=== PATIENT | female | born 1945 | race Asian ===

== ENCOUNTER 2019-07-20 14:49 | Inpatient (IN) | payer OTHER ==
[~2019-07-20] VITALS: Ht 149.9 cm; Wt 49.4 kg
[2019-07-20 14:55] VITALS: BP_SYST 134
[2019-07-20] MEDS ORDERED: INSULIN REGULAR, HUMAN 10 UNITS/0.1 ML INJ IVP ONE (15:15)
[2019-07-20] MEDS ORDERED: NACL 0.9% 1,000 ML IV ONE (15:15)
[2019-07-20 15:29] LABS: BILIRUBIN,URINE NEGATIVE (NEGATIVE); CLARITY/URINE CLEAR (CLEAR); COLOR,URINE YELLOW (YELLOW); GLUCOSE,URINE 3+ (NEGATIVE); KETONES,URINE NEGATIVE (NEGATIVE); LEUKOCYTE ESTERASE ,URINE NEGATIVE (NEGATIVE); NITRITE, URINE NEGATIVE (NEGATIVE); PROTEIN URINE TRACE (NEGATIVE); UROBILINOGEN,URINE 0.2 (0.2-1.0)
[2019-07-20 15:31] LABS: BLOOD, URINE TRACE (NEGATIVE)
[2019-07-20 15:49] LABS: BACTERIA,URINE MODERATE /HPF (None Seen); MUCUS,URINE None Seen /LPF (None Seen); WBC,URINE 0-3 /HPF (0-3)
[2019-07-20 15:52] LABS: BASOPHILS % (AUTO) 0.5 % (0.0-2.0); EOSINOPHILS # (AUTO) 0.2 K/uL (0.0-0.4); EOSINOPHILS % (AUTO) 3.4 % (0.0-4.0); HEMATOCRIT 34.8 % (36-48); HEMOGLOBIN 11.6 g/dL (12.0-16.0); LYMPHOCYTES # (AUTO) 1.3 K/uL (1.0-5.5); LYMPHOCYTES % (AUTO) 22.5 % (20.5-51.5); MEAN CORPUSCULAR HEMOGLOBIN 31 pg (27-31); MEAN CORPUSCULAR HGB CONC 33 % (32-36); MEAN CORPUSCULAR VOLUME 91 fL (79.0-98.0); MONOCYTES # (AUTO) 0.5 K/uL (0.0-1.0); MONOCYTES % (AUTO) 8.2 % (1.7-9.3); NEUTROPHILS # (AUTO) 3.8 K/uL (1.8-7.7); NEUTROPHILS % (AUTO) 65.4 % (40.0-70.0); PLATELET COUNT (AUTO) 211 K/uL (130-430); RED BLOOD CELL COUNT(AUTO) 3.81 MIL/uL (4.2-6.2); RED CELL DISTRIBUTION WIDTH 12.9 % (9.0-15.0); WHITE BLOOD COUNT (AUTO) 5.9 K/uL (4.8-10.8)
[2019-07-20 16:01] LABS: INR 0.9 (0.8-1.2); PROTHROMBIN TIME 9.3 SECS (9.5-12.5)
[2019-07-20 16:07] LABS: ANION GAP 5 (5-15); CALCIUM 8.9 mg/dL (8.4-11.0); CREATININE 1.58 mg/dL (0.55-1.30); POTASSIUM 4.3 mmol/L (3.5-5.1); UREA NITROGEN, BLOOD 26 mg/dL (8-21)
[2019-07-20 16:08] LABS: ALANINE AMINOTRANSFERASE 34 U/L (12-78); ALBUMIN 3.4 g/dL (3.4-4.8); ASPARTATE AMINOTRANSFERASE 38 U/L (10-37); TOTAL BILIRUBIN 0.2 mg/dL (0.0-1.0)
[2019-07-20 16:25] LABS: SODIUM SERUM 117 mmol/L (136-145)
[2019-07-20 16:26] LABS: CHLORIDE 82 mmol/L (98-107); GLUCOSE 746 mg/dL (70-99)
[2019-07-20] MEDS ORDERED: cefTRIAXone 1 GM VIAL IM ONE (16:30)
[2019-07-20] MEDS ORDERED: NACL 0.9% 1,000 ML IV SCH (17:00)
[2019-07-20 17:25] VITALS: BP_SYST 157
[2019-07-20] MEDS: NACL 0.9% 1,000 ML IV SCH (19:50)
[2019-07-20 20:57] VITALS: BP_SYST 123
[2019-07-20] MEDS: INSULIN REGULAR, HUMAN 100 UNITS/ML, 10 ML VIAL (humuLIN R) SUBCUT PRN (21:11)
[2019-07-20] MEDS: ENOXAPARIN SODIUM 30 MG/0.3 ML SYRINGE SUBCUT SCH (21:12)
[2019-07-21 00:15] VITALS: BP_SYST 112
[2019-07-21] MEDS: NACL 0.9% 1,000 ML IV SCH ×3 (02:49→22:08)
[2019-07-21] MEDS: INSULIN REGULAR, HUMAN 100 UNITS/ML, 10 ML VIAL (humuLIN R) SUBCUT PRN ×4 (06:03→20:22)
[2019-07-21 06:04] LABS: ANION GAP 7 (5-15); CHLORIDE 107 mmol/L (98-107); CREATININE 0.88 mg/dL (0.55-1.30); GLUCOSE 133 mg/dL (70-99); POTASSIUM 3.7 mmol/L (3.5-5.1); SODIUM SERUM 143 mmol/L (136-145); UREA NITROGEN, BLOOD 18 mg/dL (8-21)
[2019-07-21 06:20] LABS: BASOPHILS % (AUTO) 0.5 % (0.0-2.0); EOSINOPHILS # (AUTO) 0.5 K/uL (0.0-0.4); EOSINOPHILS % (AUTO) 7.6 % (0.0-4.0); HEMATOCRIT 32.6 % (36-48); HEMOGLOBIN 11.2 g/dL (12.0-16.0); LYMPHOCYTES # (AUTO) 1.8 K/uL (1.0-5.5); LYMPHOCYTES % (AUTO) 29.8 % (20.5-51.5); MEAN CORPUSCULAR HEMOGLOBIN 31 pg (27-31); MEAN CORPUSCULAR HGB CONC 34 % (32-36); MEAN CORPUSCULAR VOLUME 90 fL (79.0-98.0); MONOCYTES # (AUTO) 0.4 K/uL (0.0-1.0); MONOCYTES % (AUTO) 6.5 % (1.7-9.3); NEUTROPHILS # (AUTO) 3.3 K/uL (1.8-7.7); NEUTROPHILS % (AUTO) 55.6 % (40.0-70.0); PLATELET COUNT (AUTO) 206 K/uL (130-430); RED BLOOD CELL COUNT(AUTO) 3.63 MIL/uL (4.2-6.2); RED CELL DISTRIBUTION WIDTH 13.1 % (9.0-15.0); WHITE BLOOD COUNT (AUTO) 5.9 K/uL (4.8-10.8)
[2019-07-21 07:56] VITALS: BP_SYST 127
[2019-07-21 11:16] VITALS: BP_SYST 129
[2019-07-21] MEDS ORDERED: INSU100V9 SQ (12:20)
[2019-07-21] MEDS ORDERED: EZET10TA27 PO (12:21)
[2019-07-21] MEDS ORDERED: LIRA0.6P SQ (12:22)
[2019-07-21] MEDS ORDERED: IPRA4AER NEB (12:31)
[2019-07-21] MEDS ORDERED: SODI4VIA15 IH (12:31)
[2019-07-21] MEDS ORDERED: FLUT1AER INH (12:31)
[2019-07-21] MEDS ORDERED: SSNOVOLOG SUBCUT (12:31)
[2019-07-21] MEDS ORDERED: CALC-823 PO (12:31)
[2019-07-21] MEDS ORDERED: ASPI-1153 PO (12:31)
[2019-07-21] MEDS ORDERED: ATOR10TA68 PO (12:31)
[2019-07-21] MEDS ORDERED: COLC0.6C3 PO (12:31)
[2019-07-21] MEDS ORDERED: HYDR-3606 PO (12:31)
[2019-07-21] MEDS ORDERED: ALBMDI INH (12:31)
[2019-07-21] MEDS ORDERED: LOSA25TA3 PO (12:31)
[2019-07-21] MEDS ORDERED: INSULIN GLARGINE 100 UNITS/ML 10 ML VIAL SUBCUT ONE (12:45)
[2019-07-21] MEDS ORDERED: ASPIRIN 81 MG TABLET(ECOTRIN) PO ONE (14:00)
[2019-07-21] MEDS ORDERED: COLCHICINE 0.6 MG TABLET PO SCH (15:00)
[2019-07-21 15:05] VITALS: BP_SYST 134
[2019-07-21 16:24] VITALS: BP_SYST 134
[2019-07-21] MEDS: ALBUTEROL SULFATE 0.083% 2.5 MG/3 ML VIAL.NEB INH SCH (19:37)
[2019-07-21] MEDS: BUDESONIDE 0.5 MG/2 ML AMPUL.NEB INH SCH (19:51)
[2019-07-21 20:00] VITALS: BP_SYST 128
[2019-07-21] MEDS: CALCIUM CARBONATE/VITAMIN D3 1 TAB TABLET PO SCH (20:14)
[2019-07-21] MEDS: ENOXAPARIN SODIUM 30 MG/0.3 ML SYRINGE SUBCUT SCH (20:18)
[2019-07-22] VITALS: BP_SYST 146
[2019-07-22] MEDS: ALBUTEROL SULFATE 0.083% 2.5 MG/3 ML VIAL.NEB INH SCH ×2 (00:58→07:16)
[2019-07-22] MEDS: INSULIN REGULAR, HUMAN 100 UNITS/ML, 10 ML VIAL (humuLIN R) SUBCUT PRN ×2 (06:29→11:34)
[2019-07-22 06:53] LABS: BASOPHILS % (AUTO) 0.5 % (0.0-2.0); EOSINOPHILS # (AUTO) 0.5 K/uL (0.0-0.4); EOSINOPHILS % (AUTO) 8.1 % (0.0-4.0); HEMATOCRIT 33.5 % (36-48); HEMOGLOBIN 11.4 g/dL (12.0-16.0); LYMPHOCYTES # (AUTO) 2.1 K/uL (1.0-5.5); LYMPHOCYTES % (AUTO) 35.5 % (20.5-51.5); MEAN CORPUSCULAR HEMOGLOBIN 31 pg (27-31); MEAN CORPUSCULAR HGB CONC 34 % (32-36); MEAN CORPUSCULAR VOLUME 91 fL (79.0-98.0); MONOCYTES # (AUTO) 0.4 K/uL (0.0-1.0); MONOCYTES % (AUTO) 7.3 % (1.7-9.3); NEUTROPHILS # (AUTO) 2.9 K/uL (1.8-7.7); NEUTROPHILS % (AUTO) 48.6 % (40.0-70.0); PLATELET COUNT (AUTO) 201 K/uL (130-430); RED BLOOD CELL COUNT(AUTO) 3.69 MIL/uL (4.2-6.2); RED CELL DISTRIBUTION WIDTH 13.3 % (9.0-15.0)
[2019-07-22 07:02] LABS: ANION GAP 8 (5-15); CALCIUM 8.9 mg/dL (8.4-11.0); CHLORIDE 106 mmol/L (98-107); CREATININE 0.98 mg/dL (0.55-1.30); GLUCOSE 247 mg/dL (70-99); POTASSIUM 4.1 mmol/L (3.5-5.1); SODIUM SERUM 142 mmol/L (136-145); UREA NITROGEN, BLOOD 10 mg/dL (8-21)
[2019-07-22] MEDS: BUDESONIDE 0.5 MG/2 ML AMPUL.NEB INH SCH (07:16)
[2019-07-22 08:03] VITALS: BP_SYST 148
[2019-07-22] MEDS: NACL 0.9% 1,000 ML IV SCH (08:30)
[2019-07-22] MEDS: CALCIUM CARBONATE/VITAMIN D3 1 TAB TABLET PO SCH (08:32)
[2019-07-22] MEDS ORDERED: INSULIN GLARGINE 100 UNITS/ML 10 ML VIAL SUBCUT SCH (09:00)
[2019-07-22] MEDS ORDERED: EZETIMIBE 10 MG TABLET PO SCH (09:00)
[2019-07-22] MEDS ORDERED: ATORVASTATIN 10 MG TABLET PO SCH (09:00)
[2019-07-22] MEDS ORDERED: LOSARTAN POTASSIUM 25 MG TABLET PO SCH (09:00)
[2019-07-22] MEDS ORDERED: INSULIN GLARGINE 100 UNITS/ML 10 ML VIAL SQ SCH (09:00)
[2019-07-22] MEDS ORDERED: ASPIRIN 81 MG TABLET(ECOTRIN) PO SCH (09:00)
[2019-07-22 11:20] VITALS: BP_SYST 143
[2019-07-22 12:40] VITALS: BP_SYST 143
== END 2019-07-22 13:40 | disposition home or self-care (01) | DRG 637 ==
LOC: SED 14:49 → STU 16:48 → SMU 17:46 → STU 18:58
PROVIDERS: ADMIT Internal Medicine Hospice and Palliative Medicine; ATTEND Internal Medicine Hospice and Palliative Medicine
DX: E11.01 Type 2 diabetes mellitus with hyperosmolarity with coma (principal); N17.0 Acute kidney failure with tubular necrosis; E87.1 Hypo-osmolality and hyponatremia; N39.0 Urinary tract infection, site not specified; E86.0 Dehydration; I10 Essential (primary) hypertension; E83.52 Hypercalcemia; Z79.4 Long term (current) use of insulin
CPT/HCPCS: 36415; 70450-TC; 71045; 80048; 80053; 81000-TC; 82962; 83036; 83735-TC; 84484; 85025; 85610-TC; 87086; 87186-TC; 93005; 94640; 96361; 96372; 96374; 99285; G0378; J0696; J1650; J1815; J7030; J7613; J7626